=== PATIENT | male | born 1975 | race Two or more races ===

== ENCOUNTER 2017-02-20 16:45 | Inpatient (IN) | payer MEDICAID, OTHER ==
[~2017-02-20] VITALS: Ht 170.2 cm; Wt 94.0 kg
[2017-02-20 17:27] LABS: CONDITION Y; DEFINITIVE SEE PRINTOUT; Mean Corpuscular Hemoglobin 30.4 pg (28.0-32.0); SUSPECT SEE PRINTOUT
[2017-02-20 17:31] LABS: Hematocrit 47.8 % (41.0-53.0); Mean Corpuscular Hgb Conc. 33.4 g/dL (32.0-36.0); Mean Corpuscular Volume 91.1 fL (80.0-100.0); Mean Platelet Volume 9.1 fL (7.4-10.4); Platelet Count (auto) 396 10^3/uL (140-450); Red Cell Distribution Width 14.7 % (11.6-16.0); White Blood Cell 24.1 10^3/uL (4.4-10.8)
[2017-02-20 17:34] LABS: Metamyelocytes % 0; Myelocytes % 0; Promyelocytes % 0; Reactive Lymphocytes 0
[2017-02-20 17:45] LABS: Albumin 2.7 g/dL (3.4-5.0); Anion Gap 11 (5-15); Blood Urea Nitrogen 11 mg/dL (7-18); Calcium 8.2 mg/dL (8.5-10.1); Carbon Dioxide 21 mmol/L (21-32); Chloride 103 mmol/L (98-107); Potassium 4.5 mmol/L (3.5-5.1); Sodium 135 mmol/L (136-145)
[2017-02-20 17:50] LABS: Alkaline Phosphatase 110 U/L (45-117); Aspartate Aminotransferase 95 U/L (15-37); BUN/Creatinine Ratio 12.2; Bilirubin, Total 0.8 mg/dL (0.2-1.0); GFR African American 121 mL/min; GFR Non-African American 100 mL/min; Glucose 109 mg/dL (74-106); Total Protein 8.2 g/dL (6.4-8.2)
[2017-02-20 18:09] LABS: Platelet Estimate Adequate
[2017-02-20 20:17] LABS: Lactic Acid w/Reflex 2.1 mmol/L (0.4-2.0)
[2017-02-20 20:50] LABS: REFLEX LACTIC ACID YES OR NO YES
[2017-02-20 20:57] LABS: B-Type Natriuretic Peptide 10.8 pg/mL (0-100)
[2017-02-20] MEDS ORDERED: cefTRIAXone 1GM/50ML D5W 50 ML IV ONE (21:00)
[2017-02-20] MEDS ORDERED: FUROSEMIDE 40 MG/4 ML VIAL IV ONE (21:00)
[2017-02-20] MEDS ORDERED: SPIRONOLACTONE 25 MG TAB PO ONE (21:00)
[2017-02-20 22:18] LABS: Urine Bilirubin Negative (Negative); Urine Blood Negative /uL (Negative); Urine Color Yellow (Yellow); Urine Glucose Normal (Normal); Urine Ketone Negative (Negative); Urine Mucus MODERATE (None Seen); Urine Nitrite Negative (Negative); Urine RBC 1 /hpf (0 - 3); Urine pH 5.5 (5.0-8.0)
[2017-02-21] VITALS (7 sets, daily range): BP systolic 95–143; BP diastolic 82–92
[2017-02-21] MEDS ORDERED: ONDANSETRON HCL 4 MG/2 ML VIAL IV PRN (00:15)
[2017-02-21] MEDS ORDERED: LORazepam 0.5 MG TAB PO PRN (00:15)
[2017-02-21] MEDS ORDERED: NITROGLYCERIN 0.4 MG SL TAB SL PRN (00:15)
[2017-02-21] MEDS ORDERED: MORPHINE SULF INJ 2 MG/ML SYRINGE 1ML IV PRN (00:15)
[2017-02-21] MEDS ORDERED: metroNIDAZOLE 500MG/100ML 100 ML IV ONE (00:15)
[2017-02-21] MEDS ORDERED: MILK OF MAGNESIA 30ML SUSP PO PRN (00:15)
[2017-02-21] MEDS ORDERED: TEMAZEPAM 15 MG CAP PO PRN (00:15)
[2017-02-21] MEDS: SODIUM CHLORIDE 0.9% 1,000 ML IV SCH ×2 (01:43→13:11)
[2017-02-21] MEDS: metroNIDAZOLE 500MG/100ML 100 ML IV SCH ×2 (06:47→13:10)
[2017-02-21] MEDS ORDERED: FAM20T PO (07:34)
[2017-02-21] MEDS ORDERED: cefTRIAXone 1GM/50ML D5W 50 ML IV SCH (09:00)
[2017-02-21] MEDS: MORPHINE SULF INJ 2 MG/ML SYRINGE 1ML IV PRN ×2 (13:24→19:16)
[2017-02-21] MEDS: ALBUMIN 25% 100 ML IV SCH ×2 (14:44→21:51)
[2017-02-21 14:51] LABS: INR 1.27 (0.9-1.15); Partial Thromboplastin Time 29.2 sec (22.64-33.71)
[2017-02-21 14:57] LABS: Prothrombin Time 13.9 sec (9.37-12.3)
[2017-02-21] MEDS: SPIRONOLACTONE 25 MG TAB PO SCH (17:40)
[2017-02-22] MEDS: MORPHINE SULF INJ 2 MG/ML SYRINGE 1ML IV PRN (00:37)
[2017-02-22 05:00] VITALS: BP 129/90
[2017-02-22 05:55] LABS: Basophils # (auto) 0.1 uL; Basophils % (auto) 0.4 % (0.0-2.0); CONDITION Y; Eosinophils # (auto) 0.6 uL; Eosinophils % (auto) 3.3 % (0.0-7.0); Hematocrit 41.1 % (41.0-53.0); Hemoglobin 13.8 g/dL (13.5-17.5); Lymphocytes % (auto) 5.6 % (10.0-50.0); Mean Corpuscular Hemoglobin 30.3 pg (28.0-32.0); Mean Corpuscular Hgb Conc. 33.5 g/dL (32.0-36.0); Mean Corpuscular Volume 90.4 fL (80.0-100.0); Mean Platelet Volume 8.9 fL (7.4-10.4); Monocytes # (auto) 1.1 uL; Monocytes % (auto) 5.8 % (0.0-12.0); Neutrophils # (auto) 15.6 uL; Neutrophils % (auto) 84.9 % (37.0-80.0); Platelet Count (auto) 254 10^3/uL (140-450); Red Cell Distribution Width 14.9 % (11.6-16.0); White Blood Cell 18.4 10^3/uL (4.4-10.8)
[2017-02-22 06:11] LABS: INR 1.33 (0.9-1.15); Partial Thromboplastin Time 32.4 sec (22.64-33.71)
[2017-02-22 06:18] LABS: Prothrombin Time 14.5 sec (9.37-12.3)
[2017-02-22 06:21] LABS: Albumin 3.2 g/dL (3.4-5.0); BUN/Creatinine Ratio 15.1; Bilirubin, Total 1.4 mg/dL (0.2-1.0); Calcium 8.2 mg/dL (8.5-10.1); Potassium 4.3 mmol/L (3.5-5.1); Total Protein 7.3 g/dL (6.4-8.2)
[2017-02-22] MEDS: SPIRONOLACTONE 25 MG TAB PO SCH (06:53)
[2017-02-22] MEDS: ALBUMIN 25% 100 ML IV SCH ×2 (06:53→13:31)
[2017-02-22 08:00] VITALS: BP 141/86
[2017-02-22 08:45] VITALS: BP_SYST 141; BP_DIAS 80; BP_DIAS 86
[2017-02-22] MEDS ORDERED: SPIR25TA88 PO (11:20)
[2017-02-22] MEDS ORDERED: OMEP20CA74 PO (11:20)
[2017-02-22 12:25] VITALS: BP 143/91
[2017-02-22 15:40] VITALS: BP 143/91
[2017-02-22 17:47] LABS: Body Fluid Polymorphonuclear 60 %
[2017-02-24 01:09] LABS: Albumin, Body Fluid 1.8 g/dL (.)
== END 2017-02-22 16:53 | disposition home or self-care (01) | DRG 280 ==
LOC: ER 16:50 → TELE 16:51 → TELE-CENTR 02-21 01:54
PROVIDERS: ADMIT Internal Medicine; ATTEND Hospitalist
PROC: 0W9G3ZZ Drainage of Peritoneal Cavity, Percutaneous Approach (ICD-10-PCS; principal; 2017-02-22)
DX: K70.31 Alcoholic cirrhosis of liver with ascites (principal); K85.00 Idiopathic acute pancreatitis without necrosis or infection; J98.11 Atelectasis; E66.9 Obesity, unspecified; K76.0 Fatty (change of) liver, not elsewhere classified; Z82.49 Family history of ischemic heart disease and other diseases of the circulatory system; Z68.32 Body mass index [BMI] 32.0-32.9, adult
CPT/HCPCS: 10022; 36415; 74176; 76700; 76705; 76942; 80053; 80074; 80307; 81001; 82150; 83605; 83690; 83880; 84484; 85007; 85025; 85027; 85610; 85730; 87040; 87205; 89051; 93005; 96365; 96367; 96375; J0696; J3490

== ENCOUNTER 2017-02-25 17:12 | Emergency (ER) | payer MEDICAID ==
[~2017-02-25] VITALS: Ht 170.2 cm; Wt 85.7 kg
[~2017-02-25 17:12] MED LIST: FAM20T PO; OMEP20CA74 PO; SPIR25TA88 PO
[2017-02-25 19:37] LABS: Urine Bilirubin Negative (Negative); Urine Blood Negative /uL (Negative); Urine Color Yellow (Yellow); Urine Glucose Normal (Normal); Urine Ketone Negative (Negative); Urine Mucus FEW (None Seen); Urine Nitrite Negative (Negative); Urine RBC 1 /hpf (0 - 3); Urine Squamous Epithelial Cell FEW /hpf (<5); Urine Urobilinogen Normal (Negative)
[2017-02-25 23:00] VITALS: BP 135/88
== END 2017-02-25 23:49 | disposition home or self-care (01) ==
LOC: ER 17:14
DX: N48.1 Balanitis (principal); Z79.899 Other long term (current) drug therapy
CPT/HCPCS: 76870; 81001